=== PATIENT | female | born 2005 | race Hispanic/Latino ===

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

== ENCOUNTER → 2023-10-14 10:04 | Outpatient (CLI) | payer OTHER, SELFPAY ==
[2023-10-14 11:32] LABS: Add Manual Diff / Slide Review NO; Basophils Absolute Auto 100 /uL (0-100); Basophils Percent Auto 1.6 % (0-2); Eosinophils Absolute Auto 100 /uL (0-450); Eosinophils Percent Auto 1.8 % (2-4); Hematocrit 33.1 % (36-46); Hemoglobin 10.6 g/dL (12.0-16.0); Lymphocytes Absolute Auto 1800 /uL (1100-4500); Lymphocytes Percent Auto 33.2 % (25-40); Mean Corpuscular HGB Conc 31.9 % (30-36); Mean Corpuscular Hemoglobin 21.8 PG (26-34); Mean Corpuscular Volume 68.1 fL (80-100); Monocytes Absolute Auto 400 /uL (0-900); Monocytes Percent Auto 6.8 % (3-14); Neutrophils Absolute Auto 3100 /uL (1500-7000); Neutrophils Percent Auto 56.6 % (50-75); Platelet Count 400 X10^3/uL (150-400); Red Blood Cell Count 4.86 X10^6/uL (4.0-5.2); Red Cell Distribution Width 21.3 % (11.6-14.8); White Blood Cell Count 5.4 X10^3/uL (4.5-11.0)
[2023-10-14 12:05] LABS: HEMOLYSIS < 15 (0-50); Iron 23 ug/dL (37-170)
[2023-10-14 12:18] LABS: Percent Iron Saturation 6 % (15-50); Total Iron Binding Capacity 360 ug/dL (265-497); Transferrin 272 mg/dL (206-381)
[2023-10-14 12:45] LABS: Ferritin 4 ng/mL (6-137)
[2023-10-14 13:08] LABS: Platelet Estimate Adequate on smear
[2023-10-14 13:09] LABS: Anisocytosis 2+; Hypochromasia 1+; Microcytosis 2+; Poikilocytosis 1+
== END ==
PROVIDERS: PCP Student in an Organized Health Care Education/Training Program; Referring Provider Student in an Organized Health Care Education/Training Program; Visit Provider Student in an Organized Health Care Education/Training Program
DX: N92.0 Excessive and frequent menstruation with regular cycle (principal)
CPT/HCPCS: 36415; 82728; 83540; 83550; 85025

== ENCOUNTER → 2023-10-24 06:49 | Outpatient (CLI) | payer OTHER, SELFPAY ==
--- NOTE | 2023-10-24 06:50 | DI.US.S_ITS ---
PROCEDURE: US PELVIC COMPLETE INDICATIONS: heavy painful periods TECHNIQUE: Real-time scanning was performed of the pelvic organs, with image documentation. Additional endovaginal scanning was necessary due to incomplete visualization of the adnexal and endometrial structures by transabdominal scanning. COMPARISON: None. FINDINGS: Uterus: Uterus is anteverted and normal in size at 8.2 x 3.7 x 5.5 cm. The myometrium is homogeneous. The endometrium measures 8.8 mm combined thickness. Cervix and vagina are within normal limits. Ovaries: The right ovary measures 3 x 3.8 x 1.7 cm, with a calculated ovarian volume of 9.9 cc. The left ovary measures 2.3 x 4.3 x 2.7 cm, with a calculated ovarian volume of 18.7 cc. The ovaries have a normal sonographic appearance. Less than 12 follicles can be seen in each ovary. No adnexal masses are seen. Other: No pathologic free abdominal or pelvic fluid. IMPRESSION: Pelvic ultrasound is unremarkable. We strive to produce accurate, complete, and clear reports of imaging services. To assist us in improving patient care, this report was composed using standard report templates and voice recognition software. Therefore, it may contain abnormal punctuation, insertions and/or omissions. Occasional wrong-word or sound-alike substitutions may occur. Though we review the report and make efforts to correct it, we do recommend that the report be read carefully in proper context to recognize any text inaccuracies. Dictated by: Leonel Small M.D. on 10/24/2023 at 15:32 Approved by: Leonel Small M.D. on 10/24/2023 at 15:56
== END ==
PROVIDERS: PCP Student in an Organized Health Care Education/Training Program; Referring Provider Student in an Organized Health Care Education/Training Program; Visit Provider Student in an Organized Health Care Education/Training Program
DX: N92.0 Excessive and frequent menstruation with regular cycle (principal)
CPT/HCPCS: 76856

== ENCOUNTER → 2023-12-12 13:08 | Outpatient (CLI) | payer OTHER, SELFPAY ==
[2023-12-12 15:40] LABS: Add Manual Diff / Slide Review NO; Basophils Absolute Auto 0 /uL (0-100); Basophils Percent Auto 0.6 % (0-2); Eosinophils Absolute Auto 100 /uL (0-450); Hematocrit 39.4 % (36-46); Hemoglobin 12.9 g/dL (12.0-16.0); Lymphocytes Absolute Auto 2000 /uL (1100-4500); Lymphocytes Percent Auto 36.8 % (25-40); Mean Corpuscular HGB Conc 32.9 % (30-36); Mean Corpuscular Hemoglobin 25.1 PG (26-34); Mean Corpuscular Volume 76.4 fL (80-100); Monocytes Absolute Auto 400 /uL (0-900); Monocytes Percent Auto 6.7 % (3-14); Neutrophils Absolute Auto 3000 /uL (1500-7000); Neutrophils Percent Auto 54.9 % (50-75); Platelet Count 292 X10^3/uL (150-400); Red Blood Cell Count 5.15 X10^6/uL (4.0-5.2); Red Cell Distribution Width 27.1 % (11.6-14.8); White Blood Cell Count 5.5 X10^3/uL (4.5-11.0)
[2023-12-12 15:48] LABS: HEMOLYSIS < 15 (0-50)
[2023-12-12 15:50] LABS: Iron 105 ug/dL (37-170)
[2023-12-12 16:26] LABS: Ferritin 318 ng/mL (6-137)
[2023-12-12 17:32] LABS: RBC Morphology See
[2023-12-12 17:33] LABS: Platelet Estimate Adequate on smear; Poikilocytosis 1+; Schistocytes 1+
[2023-12-12 17:34] LABS: Anisocytosis 3+
[2023-12-12 17:42] LABS: Percent Iron Saturation 42 % (15-50); Total Iron Binding Capacity 251 ug/dL (265-497)
[2023-12-12 22:41] LABS: Transferrin 204 mg/dL (206-381)
== END ==
PROVIDERS: PCP Student in an Organized Health Care Education/Training Program; Referring Provider Student in an Organized Health Care Education/Training Program; Visit Provider Student in an Organized Health Care Education/Training Program
DX: N92.0 Excessive and frequent menstruation with regular cycle (principal); D50.9 Iron deficiency anemia, unspecified
CPT/HCPCS: 36415; 82728; 83540; 83550; 85025